=== PATIENT | female | born 1980 ===

== ENCOUNTER 2021-12-16 06:00 | Day surgery (SDC) | payer OTHER ==
[~2021-12-16] VITALS: Ht 167.6 cm; Wt 82.6 kg
[~2021-12-16 06:00] MED LIST: 1/2 NS 250ml250 ML; MEDR10 PO; XULANE PATCH1 EAC1 TD
--- NOTE | 2021-12-16 06:57 | NUR ---
Ambulatory in Day Surgery History, Chart, Medications and Allergies reviewed before start of procedure. Lungs clear T/O to Auscultation. Pre-Op teaching done. Pt verbalizes understanding.
--- NOTE | 2021-12-16 18:11 | NUR ---
PT REPORTS PAIN IS WELL CONTROLLED WITH PO MEDS, DENIES NAUSEA AND JAMES PO FOOD AND FLUIDS. PT VOIDED AFTER RAMSEY REMOVED . SCANT BLOODY VAGINAL DRAINAGE, MAUREEN PAD CHANGED X1 SINCE ARRIVING TO FLOOR
[2021-12-17 04:05] LABS: BASOPHILS ABSOLUTE AUTO 0.01 K/mm3 (0.00-0.23); BASOPHILS PERCENT AUTO 0 % (0-2); EOSINOPHILS ABSOLUTE AUTO 0.03 K/mm3 (0.00-0.68); EOSINOPHILS PERCENT AUTO 0 % (0-6); Hematocrit 32.9 % (33.0-51.0); Hemoglobin 10.8 g/dL (11.5-16.0); IMMATURE GRAN ABSOLUTE AUTO 0.02 K/mm3 (0.00-0.10); IMMATURE GRAN PERCENT AUTO 0 % (0-1); LYMPHOCYTES ABSOLUTE AUTO 1.42 K/mm3 (0.84-5.20); LYMPHOCYTES PERCENT AUTO 16 % (21-46); MONOCYTES ABSOLUTE AUTO 0.54 K/mm3 (0.16-1.47); MONOCYTES PERCENT AUTO 6 % (4-13); Mean Corpuscular HGB 29.2 pg (26.0-34.0); Mean Corpuscular HGB Conc 32.8 g/dL (31.5-36.5); Mean Corpuscular Volume 89 fL (80-100); Mean Platelet Volume 9.9 fL (9.1-12.4); NEUTROPHILS ABSOLUTE AUTO 7.15 K/mm3 (1.96-9.15); NEUTROPHILS PERCENT AUTO 78 % (41-73); Platelet Count 193 K/mm3 (150-400); RDW Coefficient Variation 12.1 % (11.7-14.2); RDW Standard Deviation 39.3 fL (35.1-46.3); White Blood Cell Count 9.17 K/mm3 (4.00-11.30)
--- NOTE | 2021-12-17 05:56 | NUR ---
A.O X4- IND IN THE ROOM. VITAL SIGNS STABLE. POD1 TOT ROBOTIC LAP HYSTER. 4 LAP SITES TIFFANIE W/ DERMABOND. PAIN MANAGED W/ PO PAIN MEDICATIONS. REPORTS PASSING FLATUS, VOIDING WELL. WILL CONTINUE TO MONITOR AND REPORT TO ONCOMING
--- NOTE | 2021-12-17 09:33 | NUR ---
AMBULATING IN PASCUAL, STEADY ON FEET. PT REPORTS PAIN IS CONTROLLED TO HER EXPECTATIONS
[2021-12-17] MEDS ORDERED: MOTRIN IB200 MG PO (10:43)
[2021-12-17] MEDS ORDERED: Percocet 5-3251 EACH PO (10:44)
[2021-12-17] MEDS ORDERED: SIME80CH PO (10:45)
[2021-12-17] MEDS ORDERED: PROM25 PO (10:45)
--- NOTE | 2021-12-17 12:29 | NUR ---
IMMEDIATE NAUSEA AND EMESIS AFTER SWALLOWED PAIN MEDICATION
--- NOTE | 2021-12-17 13:41 | NUR ---
1315 DISCHARGE REVIEWED WITH PT AND PATIENT IN AGREEMENT WITH PLAN TO DISCHAEGE HOME. PT REPORTS NAUSEA HAS RESOLVED AFTER PHENERGAN. PAIN IS ADEQUATELY CONTROLLED. JAMES PO FOOD WITHOUT FURTHER NAUSEA. DISCHARGED TO HOME WITH ABD BINDER IN PLACE. NO VAGINAL DRAINAGE
== END 2021-12-17 13:17 | disposition home or self-care (01) ==
LOC: ORSCMMR 06:00 → ORD 07:30 → ORSCMMR 07:30 → ORD 11:00 → SURS 11:52 → ORSCMMR 12-17 13:17
PROVIDERS: Obstetrics & Gynecology
DX: D25.0 Submucous leiomyoma of uterus (principal); N92.0 Excessive and frequent menstruation with regular cycle; N94.10 Unspecified dyspareunia; N80.9 Endometriosis, unspecified; Z87.891 Personal history of nicotine dependence; Z79.899 Other long term (current) drug therapy
CPT/HCPCS: 58571; S2900; 36415; 85025; 86850; 86900; 86901; 88305; 88307; A9270; J0690; J1100; J1170; J1885; J2250; J2405; J2550; J2704; J3010; J7120